=== PATIENT | male | born 1960 | race Caucasian/White ===

== ENCOUNTER 2022-04-01 11:20 | Inpatient (IN) | payer MEDICARE ==
[2022-04-01] MEDS ORDERED: Aspirin Chewable 81 MG TAB ONE (12:19)
[2022-04-01 12:20] LABS: #Basophils 0.1 thou/uL (0.0-0.2); #Eosinphils 0.3 thou/uL (0.0-0.7); #Lymphocytes 2.3 thou/uL (1.20-3.40); #Monocytes 0.5 thou/uL (0.11-0.59); #Neutrophils 3.3 thou/uL (1.40-6.50); %Basophils 1.2 % (0.0-1.0); %Eosinophils 3.9 % (0.0-10.0); %Lymphocytes 35.7 % (21.0-51.0); %Neutrophils 51.2 % (42.0-75.0); Mean Corpuscular HGB CONC 32.6 g/dL (32.0-36.0); Mean Corpuscular Hemoglobin 29.9 pg (27.0-31.0); Mean Corpuscular Volume 91.9 fL (78.0-98.0); Mean Platelet Volume 9.2 fL (7.4-10.4); Platelet Count 194 thou/uL (130-400); RBC Distribution Width 12.2 % (11.5-14.5); Red Blood Cell (RBC) Count 5.33 mill/uL (4.70-6.10); White Blood Cell (WBC) Count 6.5 thou/uL (4.8-10.8)
[2022-04-01 12:34] LABS: ALT (SGPT) 21 U/L (8-55); AST (SGOT) 16 U/L (5-34); Albumin 4.2 g/dL (3.5-5.0); Alkaline Phosphatase 77 U/L (40-110); Anion Gap 14 mmol/L (10-20); BUN (Urea Nitrogen) 17 mg/dL (8.4-25.7); Bilirubin, Total 0.4 mg/dL (0.2-1.2); Calc. Creatinine Clearance 0 mL/min (70-130); Calcium 9.5 mg/dL (7.8-10.44); Carbon Dioxide 25 mmol/L (22-29); Chloride 103 mmol/L (98-107); Globulin 3.6 g/dL (2.4-3.5); Glucose 89 mg/dL (70-105); Potassium 4.3 mmol/L (3.5-5.1); Protein, Total 7.8 g/dL (6.0-8.3); Sodium 138 mmol/L (136-145)
[2022-04-01 12:40] LABS: PTT 29.5 sec (22.9-36.1); Prothrombin Time 13.1 sec (12.0-14.7)
[2022-04-01] MEDS ORDERED: Iopamidol-370 76% 500 ML 1 ML ONE (13:38)
[2022-04-01] MEDS ORDERED: Acetaminophen 325 MG TAB PO PRN (14:45)
[2022-04-01] MEDS ORDERED: hydrALAZINE 20 MG/ML VIAL SLOW IVP PRN (14:45)
[2022-04-01 15:33] LABS: Hemoglobin A1c 5.4 % (4.0-6.0)
[2022-04-01 16:16] VITALS: BMI 20.2
[2022-04-01] MEDS: Atorvastatin Calcium 40 MG TAB PO SCH (20:43)
[2022-04-02 05:07] LABS: #Eosinphils 0.4 thou/uL (0.0-0.7); #Lymphocytes 2.7 thou/uL (1.20-3.40); #Monocytes 0.6 thou/uL (0.11-0.59); #Neutrophils 4.1 thou/uL (1.40-6.50); %Basophils 0.1 % (0.0-1.0); %Eosinophils 5.6 % (0.0-10.0); %Lymphocytes 34.6 % (21.0-51.0); %Monocytes 7.3 % (0.0-10.0); %Neutrophils 52.3 % (42.0-75.0); Hemoglobin 14.1 g/dL (14.0-18.0); Mean Corpuscular HGB CONC 33.2 g/dL (32.0-36.0); Mean Corpuscular Hemoglobin 30.5 pg (27.0-31.0); Mean Corpuscular Volume 91.6 fL (78.0-98.0); Mean Platelet Volume 9.1 fL (7.4-10.4); Platelet Count 173 thou/uL (130-400); RBC Distribution Width 11.9 % (11.5-14.5); Red Blood Cell (RBC) Count 4.63 mill/uL (4.70-6.10); White Blood Cell (WBC) Count 7.9 thou/uL (4.8-10.8)
[2022-04-02 05:30] LABS: Anion Gap 13 mmol/L (10-20); BUN (Urea Nitrogen) 15 mg/dL (8.4-25.7); Calc. Creatinine Clearance 88 mL/min (70-130); Carbon Dioxide 24 mmol/L (22-29); Cardiac Risk 4.8 (Less than 4.5); Chloride 104 mmol/L (98-107); Cholesterol 246 mg/dl (< 200 Desired); Glucose 89 mg/dL (70-105); HDL Cholesterol 51 mg/dL (>60 Neg Risk); LDL Cholesterol, Calculated 167 mg/dL; Sodium 137 mmol/L (136-145); Triglycerides 140 mg/dL (Less than 150)
[2022-04-02] MEDS: Aspirin 81 mg Enteric Coated Tablet PO SCH (10:42)
[2022-04-02] MEDS: Atorvastatin Calcium 40 MG TAB PO SCH (20:57)
[2022-04-03] MEDS: Aspirin 81 mg Enteric Coated Tablet PO SCH (08:59)
[2022-04-03 11:49] VITALS: BP 104/68; TEMP 97.6
== END 2022-04-03 15:10 | disposition home or self-care (01) | DRG 69 ==
LOC: ERS 11:20 → 2SW 14:03 → OBSVTOIN 04-03 09:22
PROVIDERS: ADMIT Internal Medicine; ATTEND Internal Medicine
DX: G45.9 Transient cerebral ischemic attack, unspecified (principal); I42.9 Cardiomyopathy, unspecified; Z20.822 Contact with and (suspected) exposure to COVID-19; I25.10 Atherosclerotic heart disease of native coronary artery without angina pectoris; E78.5 Hyperlipidemia, unspecified; Z95.5 Presence of coronary angioplasty implant and graft; Z95.810 Presence of automatic (implantable) cardiac defibrillator; Z98.890 Other specified postprocedural states
CPT/HCPCS: 36415; 36416; 70450; 70496; 70498; 70551; 71045; 80048; 80053; 80061; 83036; 84443; 84484; 85025; 85610; 85730; 93005; 93306; G0378; U0003; U0005